=== PATIENT | male | born 2000 | race Two or more races ===

== ENCOUNTER 2021-08-30 12:37 | Emergency (ER) | payer OTHER ==
[~2021-08-30] VITALS: Ht 172.7 cm; Wt 65.8 kg
[2021-08-30] MEDS ORDERED: CLEOCIN HCL300 MG PO (14:25)
== END 2021-08-30 14:36 | disposition home or self-care (01) ==
LOC: ER 12:37
DX: S61.216A Laceration without foreign body of right little finger without damage to nail, initial encounter (principal); W25.XXXA Contact with sharp glass, initial encounter; Y93.9 Activity, unspecified; Y92.9 Unspecified place or not applicable; Y99.9 Unspecified external cause status